=== PATIENT | male | born 1990 | race American Indian/Alaskan Native ===

== ENCOUNTER 2017-06-25 14:36 | Emergency (ER) | payer SELFPAY ==
[2017-06-25 15:00] VITALS: BP 138/93
[2017-06-25] MEDS ORDERED: MARCAINE 0.5% INFILTRATI ONE (16:25)
--- NOTE | 2017-06-25 20:55 | Emergency Department Report ---
Entered by VISHNU AGUILAR, acting as scribe for KAILA BEGUM NP. - General Chief complaint: Extremity Injury, Lower Stated complaint: RT HAND MIDDLE FINDER HANG NAIL Time Seen by Provider: 06/25/17 16:16 Source: patient Mode of arrival: Ambulatory Limitations: No Limitations - History of Present Illness Initial comments: 26 y/o male presents to the ED c/o infection to right middle finger x 1 week. PT states the symptoms started after he clipped a hang nail. Associated symptoms include pain, swelling, drainage and chills but denies fever, nausea and vomiting. Pain is described as 10/10 on a severity scale. Patient states he might have an ingrown nail. No alleviating factors despite soaking finger in peroxide and no aggravating factors. NKDA. Pt states his TD vaccine is UTD complaint: other (infection to right middle finger) Onset/Timin -: week(s) Tetanus Up to Date: yes Location: RUE Severity: severe Severity scale (0 -10): 10 Consistency: constant Improves with: none Worsens with: palpation Context: other (recently cut cuticle/ hang nail. denies chewing on nails ) Associated symptoms: chills, other (drainage, swelling, pain, denies:fever, nausea, vomiting) Treatments Prior to Arrival: other (soaking in peroxide) - Related Data Previous Rx's Medication Instructions Recorded Last Taken Type Acetaminophen/Codeine [Tylenol #3] 1 tab PO Q6H PRN #12 tab 06/25/17 Unknown Rx Cephalexin [Keflex] 500 mg PO Q6HR #40 capsule 06/25/17 Unknown Rx Ibuprofen [Motrin] 600 mg PO Q8H PRN #20 tablet 06/25/17 Unknown Rx Mupirocin [Bactroban 2%] 1 applic TP TID 5 Days 06/25/17 Unknown Rx Allergies Allergy/AdvReac Type Severity Reaction Status Date / Time No Known Allergies Allergy Unverified 06/25/17 14:59 Abscess Boil HPI - HPI Chief Complaint: Extremity Injury, Lower Stated Complaint: RT HAND MIDDLE FINDER HANG NAIL Time Seen by Provider: 06/25/17 16:17 Home Medications: Previous Rx's Medication Instructions Recorded Last Taken Type Acetaminophen/Codeine [Tylenol #3] 1 tab PO Q6H PRN #12 tab 06/25/17 Unknown Rx Cephalexin [Keflex] 500 mg PO Q6HR #40 capsule 06/25/17 Unknown Rx Ibuprofen [Motrin] 600 mg PO Q8H PRN #20 tablet 06/25/17 Unknown Rx Mupirocin [Bactroban 2%] 1 applic TP TID 5 Days 06/25/17 Unknown Rx Allergies/Adverse Reactions: Allergies Allergy/AdvReac Type Severity Reaction Status Date / Time No Known Allergies Allergy Unverified 06/25/17 14:59 ED Review of Systems Comment: All other systems reviewed and negative Constitutional: chills. denies: fever Gastrointestinal: denies: nausea, vomiting Musculoskeletal: as per HPI Skin: as per HPI, other ( right middle finger with swelling, pain ) ED Past Medical Hx - Past Medical History Previous Medical History?: No - Surgical History Past Surgical History?: No - Social History Smoking Status: Current Every Day Smoker Substance Use Type: None - Medications Home Medications: Home Medications Medication Instructions Recorded Confirmed Last Taken Type Acetaminophen/Codeine [Tylenol #3] 1 tab PO Q6H PRN #12 tab 06/25/17 Unknown Rx Cephalexin [Keflex] 500 mg PO Q6HR #40 capsule 06/25/17 Unknown Rx Ibuprofen [Motrin] 600 mg PO Q8H PRN #20 tablet 06/25/17 Unknown Rx Mupirocin [Bactroban 2%] 1 applic TP TID 5 Days 06/25/17 Unknown Rx ED Physical Exam - General Limitations: No Limitations General appearance: alert, in no apparent distress - Head Head exam: Present: atraumatic, normocephalic, normal inspection - Eye Eye exam: Present: normal appearance, PERRL, EOMI. Absent: scleral icterus, conjunctival injection, nystagmus, periorbital swelling, periorbital tenderness Pupils: Present: normal accommodation - ENT ENT exam: Present: normal exam, normal orophraynx, mucous membranes moist, normal external ear exam - Neck Neck exam: Present: normal inspection, full ROM. Absent: tenderness, meningismus, lymphadenopathy, thyromegaly - Respiratory Respiratory exam: Present: normal lung sounds bilaterally. Absent: respiratory distress, wheezes, rales, rhonchi, stridor, chest wall tenderness, accessory muscle use, decreased breath sounds, prolonged expiratory - Cardiovascular Cardiovascular Exam: Present: regular rate, normal rhythm, normal heart sounds. Absent: bradycardia, tachycardia, irregular rhythm, systolic murmur, diastolic murmur, rubs, gallop - GI/Abdominal GI/Abdominal exam: Present: soft. Absent: tenderness, guarding, rebound - Extremities Exam Extremities exam: Present: full ROM, normal capillary refill. Absent: normal inspection, tenderness, pedal edema, joint swelling, calf tenderness - Expanded Upper Extremity Exam Left General: Present: normal inspection Right Hand Wrist exam: Present: tenderness (R middle finger ), swelling (R middle finger ), erythema. Absent: full ROM (decrease flexion of R middle finger due to pain ), ecchymosis, deformity, nail avulsion, subungual hematoma Vascular: Absent: vascular compromise - Back Exam Back exam: Present: normal inspection, full ROM. Absent: tenderness, CVA tenderness (R), CVA tenderness (L), muscle spasm, paraspinal tenderness, vertebral tenderness, rash noted - Neurological Exam Neurological exam: Present: alert, oriented X3 - Psychiatric Psychiatric exam: Present: normal affect, normal mood - Skin Skin exam: Present: other (paronychia to ulnar aspect of right middle finger, with surrounding cellulitis spontaneusly drainaged upon examination) ED Course Vital Signs 06/25/17 14:57 Temperature 98.7 F Pulse Rate 74 Respiratory 18 Rate Blood Pressure 138/93 O2 Sat by Pulse 98 Oximetry - Reevaluation(s) Reevaluation #1: 06/25/17 16:44 Paronychia spontaneously drained. No need for I and D. digital block performed for pt's pain control. PT pain free at this time. PT given strict return precautions. PT has no questions at this time. - Nerve Block Consent Obtained: verbal consent Local Anesthetic Used: Marcaine 0.5% Amount of anesthesia used: 3 (ml) Side: right Nerve Blocks: digital Procedure Successful: Yes Complications: none Patient Tolerated Procedure: well - Pulse Oximetry Interpretation Digit-Finger Initial Pulse Oximetry Readin Actions Taken: none ED Disposition Clinical Impression: Paronychia of finger Qualifiers: Laterality: right Qualified Code(s): L03.011 - Cellulitis of right finger Disposition: TO HOME OR SELFCARE Is pt being admited?: No Does the pt Need Aspirin: No Condition: Stable Instructions: Paronychia (ED), Cellulitis (ED) Additional Instructions: No driving or alcohol after taking Tylenol #3 for pain Continue warm compresses Follow up with PCP in 3-5 days Recheck bp at follow up Return to the ED if your swelling gets worse, you can not move your finger, or you have fevers Prescriptions: Acetaminophen/Codeine [Tylenol #3] 1 tab PO Q6H PRN #12 tab PRN Reason: Pain , Severe (7-10) Cephalexin [Keflex] 500 mg PO Q6HR #40 capsule Ibuprofen [Motrin] 600 mg PO Q8H PRN #20 tablet PRN Reason: Pain Mupirocin [Bactroban 2%] 1 applic TP TID 5 Days Referrals: PRIMARY CAREMD [Primary Care Provider] - 3-5 Days HANNA FERRARA MD [Staff Physician] - 3-5 Days Forms: Work/School Release Form(ED) Time of Disposition: 16:47 This documentation as recorded by the LAUREN hoffmann ELIZABETH,accurately reflects the service I personally performed and the decisions made by ,KAILA BEGUM, ENGINEERED WOOD DES[employer]ER.
== END 2017-06-25 16:48 | disposition home or self-care (01) ==
LOC: ED 14:36
DX: L03.011 Cellulitis of right finger (principal); F17.200 Nicotine dependence, unspecified, uncomplicated